=== PATIENT | female | born 1975 | race Caucasian/White ===

== ENCOUNTER → 2018-01-24 | Outpatient (CLI) | payer OTHER, BC ==
[2018-01-24] MEDS: GADOBUTROL 10 MMOL/10 ML (GADAVIST) VIAL IV ONE (08:51)
--- NOTE | 2018-01-24 09:33 | Diagnostic Imaging Report ---
PROCEDURE: MR imaging of the brain with and without contrast. TECHNIQUE: Multiplanar, multisequence MR imaging of the brain was performed with and without contrast. INDICATION: Memory loss. No prior MRI studies available for comparison. The ventricles and sulci are appropriate for the patient's age. There is no diffusion restriction. There is normal expected flow-voids within the carotid siphons are seen. No acute intra-axial or extra-axial hemorrhage is detected. The corpus callosum is unremarkable. Sella and parasellar structures are unremarkable. No abnormal enhancement following contrast administration is identified. IMPRESSION: Unremarkable pre-and postcontrast MRI of the brain. Dictated by: Dictated on workstation # [id number]
== END ==
LOC: RAD 07:54
PROVIDERS: ATTEND Nurse Practitioner Family
DX: R41.3 Other amnesia (principal)
CPT/HCPCS: 70553

== ENCOUNTER → 2018-02-11 | Outpatient (CLI) | payer OTHER, BC ==
--- NOTE | 2018-02-11 19:15 | Diagnostic Imaging Report ---
INDICATION: Digital mammogram bilateral screening. This is the patient's baseline study. At this time, there are no current complaints. The current study was also evaluated with a Computer Aided Detection (CAD) system. FINDINGS: There are scattered fibroglandular densities in both breasts which could obscure a lesion. There is no primary or secondary sign of malignancy noted. IMPRESSION: 1. There is no evidence of malignancy. 2. The patient should have her annual bilateral screening mammogram on schedule in January of 2019. ACR BI-RADS Category 1: Negative. Result letter will be mailed to the patient. Note: At least 10% of breast cancer is not imaged by mammography. Dictated by: Dictated on workstation # [id number]
== END ==
LOC: RAD 08:10
PROVIDERS: ATTEND Nurse Practitioner Family
DX: Z12.31 Encounter for screening mammogram for malignant neoplasm of breast (principal)
CPT/HCPCS: 77067

== ENCOUNTER → 2020-01-14 | Outpatient (CLI) | payer OTHER ==
--- NOTE | 2020-01-14 10:59 | Diagnostic Imaging Report ---
PROCEDURE: CT urinary tract, rule out kidney stone. TECHNIQUE: Multiple contiguous axial images were obtained through the abdomen and pelvis without the use of intravenous contrast. Auto Exposure Controls were utilized during the CT exam to meet ALARA standards for radiation dose reduction. INDICATION: Hematuria, bilateral flank pain. COMPARISON: There are no prior studies available for comparison. FINDINGS: There is no evidence for nephrolithiasis or urolithiasis and the kidneys do not appear to be obstructed. There is no solid renal mass identified either. The urinary bladder is only partially filled and consequently difficult to assess. There is no obvious bladder abnormality evident. The uterus does not appear to be enlarged. There is a 3.1 cm cyst associated with the left ovary. If further evaluation of this finding is desired, then ultrasound would be recommended. There is no pelvic mass or free fluid collection noted. There are few diverticula scattered throughout the descending and sigmoid colon. There is no evidence for acute diverticulitis. The appendix was visualized and is not abnormally thickened. The liver, spleen, pancreas, adrenals, aorta, and the inferior vena cava are unremarkable for an acute abnormality. The stomach is not well distended and consequently difficult to assess. The gallbladder is surgically absent. The lung bases are clear. The bone windows show no sign of a fracture or of a destructive lesion. IMPRESSION: 1. There is no evidence for nephrolithiasis or urolithiasis and the kidneys do not appear to be obstructed. 2. There is a 3.1 cm low-density area associated with the left ovary. Most likely, this is a cyst. If further study is desired, then ultrasound would be recommended. 3. There is diverticulosis of the sigmoid and descending colon without evidence for acute diverticulitis. 4. The gallbladder is surgically absent. Dictated by: Dictated on workstation # [id number]
== END ==
LOC: RAD 10:14
PROVIDERS: ATTEND Family Medicine
DX: K57.30 Diverticulosis of large intestine without perforation or abscess without bleeding (principal); R31.9 Hematuria, unspecified; R10.9 Unspecified abdominal pain
CPT/HCPCS: 74176

== ENCOUNTER → 2020-01-18 | Outpatient (CLI) | payer BC, OTHER | LOC: CARD 10:13 | PROVIDERS: ATTEND Nurse Practitioner Family | DX: I51.7 Cardiomegaly (principal); R00.0 Tachycardia, unspecified | CPT/HCPCS: 93225; 93226; 93306 ==

== ENCOUNTER → 2020-01-26 | Outpatient (CLI) | payer BC, OTHER | LOC: CARD 13:06 | PROVIDERS: ATTEND Internal Medicine Cardiovascular Disease | DX: R00.2 Palpitations (principal); R00.0 Tachycardia, unspecified | CPT/HCPCS: 93351 ==

== ENCOUNTER → 2021-10-16 | Outpatient (CLI) | payer OTHER ==
--- NOTE | 2021-10-16 16:33 | Diagnostic Imaging Report ---
TECHNIQUE: Multiplanar multisequence MRI of the thoracic spine was performed without contrast. REASON FOR EXAM: Mid back pain. Rib pain. COMPARISON: None. FINDINGS: No acute fracture or dislocation is seen in the thoracic spine. Vertebral body heights are well-maintained. Alignment is anatomic. No suspicious focal osseous lesions are visualized in the thoracic spine. Hemangiomas are seen in the L1 vertebral body. The costovertebral junctions throughout the thoracic spine are unremarkable. The intrinsic signal within the thoracic spinal cord is normal. No evidence of cord expansion. No epidural collections are identified. Mild degenerative changes are seen in the thoracic spine with posterior disc bulges and facet hypertrophy. These are greatest at the T8-T9 level with mild spinal canal narrowing and no significant foraminal narrowing. No high-grade spinal canal stenosis is seen in the thoracic spine. The included lungs are clear. The paraspinal soft tissues are unremarkable. IMPRESSION: 1. No acute fracture or dislocation in the thoracic spine. 2. Unremarkable appearance of the costovertebral junctions throughout the thoracic spine. No evidence of malalignment or focal osseous lesion. No bone marrow edema is seen. 3. Mild degenerative changes in the thoracic spine, greatest at T8-T9. No high-grade spinal canal or foraminal stenosis. Dictated by: Dictated on workstation # [id number]
== END ==
LOC: RAD 14:45
PROVIDERS: ATTEND Pediatrics
DX: M47.814 Spondylosis without myelopathy or radiculopathy, thoracic region (principal)
CPT/HCPCS: 72146

== ENCOUNTER 2022-08-18 15:12 | Day surgery (SDC) | payer OTHER ==
[2022-08-18] VITALS (10 sets, daily range): BP systolic 111–146; BP diastolic 53–90
[~2022-08-18] VITALS: Ht 162 cm; Wt 104.0 kg
--- NOTE | 2022-08-18 15:37 | ED Abdominal Pain ---
General Chief Complaint: Abdominal/GI Problems Stated Complaint: ABD PAIN Source of Information: Patient Exam Limitations: No Limitations History of Present Illness Date Seen by Provider: Aug 18, 2022 Time Seen by Provider: 15:30 Initial Comments Patient comes to the emergency department today for abdominal pain that started in the middle of the night. Initially thought that she had food poisoning but the symptoms have continued to persist throughout the day. Denies fever that she is aware of. Has not ate anything today. Was seen in the clinic prior to coming here. States that they gave her a pill and she immediately vomited it back up. No emesis since then. Does still have her appendix. Denies concern for as she is not currently sexually active. Timing/Duration: 1 Day Severity/Quality: Moderate Location: RLQ Radiation: No Radiation Activities at Onset: None Modifying Factors: Improves With Lying down Associated Symptoms: No Fever/Chills; Nausea/Vomiting Allergies and Home Medications Allergies Coded Allergies: No Known Drug Allergies (Unverified , 01/24/18) Patient Home Medication List Home Medication List Reviewed: Yes Hydrocodone Bit/Acetaminophen (HYDROcodone/APAP 5 MG/325 MG TAB) 1 Tab Tab, 1 TAB PO Q8H PRN for PAIN-MODERATE (5-7) Prescribed by: GERARDO SIM on 08/18/221906 Review of Systems Review of Systems Constitutional: No chills, No diaphoresis, No fever EENTM: No Symptoms Reported Respiratory: Denies Cough, Denies Shortness of Air, Denies Wheezing Cardiovascular: Denies Chest Pain, Denies Palpitations Gastrointestinal: Abdominal Pain; Denies Constipated, Denies Diarrhea; Nausea, Poor Appetite, Poor Fluid Intake, Vomiting Genitourinary: Denies Burning, Denies Discharge, Denies Frequency, Denies Flank Pain Musculoskeletal: No back pain Skin: No pruritus, No rash All Other Systems Reviewed Negative Unless Noted: Yes Past Ljzsuoz-Wdqwzl-Kzdfuo Hx Patient Social History Tobacco Use?: No Family Medical History Reviewed Nursing Family Hx Physical Exam Vital Signs Vital Signs - First Documented 08/18/22 15:25 Temp 35.4 Pulse 80 Resp 18 B/P (MAP) 162/95 (117) O2 Delivery Room Air Capillary Refill : Height/Weight/BMI Height: '" Weight: lbs. oz. kg; BMI Method: General Appearance: WD/WN, no apparent distress Neck: non-tender, normal inspection Respiratory: chest non-tender, lungs clear, normal breath sounds, no respiratory distress, no accessory muscle use Cardiovascular: regular rate, rhythm Gastrointestinal: abnormal bowel sounds (decreased bowel sounds); No distended; guarding (right lower quadrant), rebound (RLQ), tenderness (RLQ) Extremities: normal range of motion, non-tender, normal inspection Back: normal inspection Skin: normal color, warm/dry Progress/Results/Core Measures Results/Orders Lab Results Laboratory Tests Test 08/18/22 15:30 08/18/22 16:49 Range/Units White Blood Count 16.6 H 4.3-11.0 10^3/uL Red Blood Count 5.04 3.80-5.11 10^6/uL Hemoglobin 14.1 11.5-16.0 g/dL Hematocrit 41 35-52 % Mean Corpuscular Volume 81 80-99 fL Mean Corpuscular Hemoglobin 28 25-34 pg Mean Corpuscular Hemoglobin Concent 35 32-36 g/dL Red Cell Distribution Width 13.0 10.0-14.5 % Platelet Count 292 130-400 10^3/uL Mean Platelet Volume 9.6 9.0-12.2 fL Immature Granulocyte % (Auto) 1 % Neutrophils (%) (Auto) 86 H 42-75 % Lymphocytes (%) (Auto) 9 L 12-44 % Monocytes (%) (Auto) 3 0-12 % Eosinophils (%) (Auto) 0 0-10 % Basophils (%) (Auto) 0 0-10 % Neutrophils # (Auto) 14.4 H 1.8-7.8 10^3/uL Lymphocytes # (Auto) 1.6 1.0-4.0 10^3/uL Monocytes # (Auto) 0.5 0.0-1.0 10^3/uL Eosinophils # (Auto) 0.0 0.0-0.3 10^3/uL Basophils # (Auto) 0.1 0.0-0.1 10^3/uL Immature Granulocyte # (Auto) 0.1 0.0-0.1 10^3/uL Neutrophils % (Manual) 85 % Lymphocytes % (Manual) 12 % Monocytes % (Manual) 3 % Blood Morphology Comment NORMAL Sodium Level 139 135-145 MMOL/L Potassium Level 3.4 L 3.6-5.0 MMOL/L Chloride Level 99 98-107 MMOL/L Carbon Dioxide Level 22 21-32 MMOL/L Anion Gap 18 H 5-14 MMOL/L Blood Urea Nitrogen 6 L 7-18 MG/DL Creatinine 0.69 0.60-1.30 MG/DL Estimat Glomerular Filtration Rate 109 BUN/Creatinine Ratio 9 Glucose Level 126 H 70-105 MG/DL Calcium Level 10.1 8.5-10.1 MG/DL Corrected Calcium 8.5-10.1 MG/DL Total Bilirubin 0.5 0.1-1.0 MG/DL Aspartate Amino Transf (AST/SGOT) 28 5-34 U/L Alanine Aminotransferase (ALT/SGPT) 45 0-55 U/L Alkaline Phosphatase 83 40-136 U/L Total Protein 8.3 H 6.4-8.2 GM/DL Albumin 4.6 H 3.2-4.5 GM/DL Lipase 7 L 8-78 U/L Serum Test, Qualitative NEGATIVE NEGATIVE Urine Color YELLOW Urine Clarity CLEAR Urine pH 7.5 5-9 Urine Specific [place] <=1.005 1.016-1.022 Urine Protein NEGATIVE NEGATIVE Urine Glucose (UA) NEGATIVE NEGATIVE Urine Ketones NEGATIVE NEGATIVE Urine Nitrite NEGATIVE NEGATIVE Urine Bilirubin NEGATIVE NEGATIVE Urine Urobilinogen 0.2 < = 1.0 MG/DL Urine Leukocyte Esterase NEGATIVE NEGATIVE Urine RBC (Auto) NEGATIVE NEGATIVE Urine RBC NONE /HPF Urine WBC NONE /HPF Urine Squamous Epithelial Cells 2-5 /HPF Urine Crystals NONE /LPF Urine Bacteria NEGATIVE /HPF Urine Casts NONE /LPF Urine Mucus NEGATIVE /LPF Urine Culture Indicated NO My Orders Orders - KURT GONSALVES APRN Comprehensive Metabolic Panel (08/18/22 15:37) Lipase (08/18/22 15:37) Ua Culture If Indicated (08/18/22 15:37) Hcg,Qualitative Serum (08/18/22 15:37) Ed Iv/Invasive Line Start (08/18/22 15:37) Cbc With Automated Diff (08/18/22 15:37) Ct Abd/Pelv W (Appendicitis) (08/18/22 15:37) Ns Iv 1000 Ml (Sodium Chloride 0.9%) (08/18/22 15:45) Ondansetron Injection (Zofran Injectio (08/18/22 15:45) Iohexol Injection (Omnipaque 350 Mg/Ml 1 (08/18/22 15:45) Received Contrast (Hold Metformin- Contr (08/18/22 15:45) Ns (Ivpb) (Sodium Chloride 0.9% Ivpb Bag (08/18/22 15:45) Manual Differential (08/18/22 15:30) Lidocaine/Epi Mpf 2% 1:200,000 (Xylocain (08/18/22 17:48) Medications Given in ED Vital Signs/I&O 08/18/22 15:25 Temp 35.4 Pulse 80 Resp 18 B/P (MAP) 162/95 (117) O2 Delivery Room Air Progress Progress Note : Progress Note Patient offered pain medication after assessment and declined at this time. Will work up for appendicitis at this time. 1647: CT scan shows appendicitis. Patient aware of CT findings. Her WBC count is elevated in addition. Upon reassessment she is denying pain at this time. Consulted with Dr. Sim in regards to patient and he will come in and evaluate patient. Patient made aware of this. Consults : Consulting Physician: GERARDO SIM DO Consults Notes 1647: Consulted with Dr. Sim in regards to patient. He will come in and see patient. Departure Communication (Admissions) Time/Spoke to Admitting Phy: 16:[address] Sim in regards to patient and appendicitis. He will come in and evaluate the patient. Impression Primary Impression: Appendicitis Qualified Codes: K35.80 - Unspecified acute appendicitis Disposition: ADMITTED INPATIENT Condition: Stable Admissions Decision to Admit Reason: Admit from ER (General) Decision to Admit/Date: Aug 19, 2022 Time/Decision to Admit Time: 16:47 Departure-Patient Inst. Decision time for Depature: 16:47 Referrals: TRICIA RUST MD (PCP/Family) Primary Care Physician Scripts Hydrocodone Bit/Acetaminophen (HYDROcodone/APAP 5 MG/325 MG TAB) 1 Tab Tab 1 TAB PO Q8H PRN for PAIN-MODERATE (5-7), #14 TAB Prov: GERARDO SIM DO 08/18/22 KURT GONSALVES APRN Aug 18, 2022 15:37
[2022-08-18] MEDS ORDERED: NS 100 ML (IVPB) BAG IV ONE (15:45)
[2022-08-18] MEDS ORDERED: ONDANSETRON 4 MG/2 ML (SDV) Z0FRAN IVP ONE (15:45)
[2022-08-18] MEDS ORDERED: IOHEXOL 350 MG/ML 100 ML (OMNIPAQUE 350) VIAL IV ONE (15:45)
[2022-08-18] MEDS ORDERED: NS IV 1000 ML 1,000 ML IV SCH (15:45)
[2022-08-18] MEDS ORDERED: HOLD METFORMIN - RECEIVED CONTRAST 20 ML VIAL IV SCH (15:45)
[2022-08-18 15:58] LABS: ALBUMIN 4.6 GM/DL (3.2-4.5); CHLORIDE 99 MMOL/L (98-107); POTASSIUM 3.4 MMOL/L (3.6-5.0); SODIUM 139 MMOL/L (135-145)
[2022-08-18 16:00] LABS: CALCIUM 10.1 MG/DL (8.5-10.1)
[2022-08-18 16:01] LABS: GLUCOSE 126 MG/DL (70-105); TOTAL PROTEIN 8.3 GM/DL (6.4-8.2)
[2022-08-18 16:02] LABS: BILIRUBIN,TOTAL 0.5 MG/DL (0.1-1.0); CARBON DIOXIDE 22 MMOL/L (21-32)
[2022-08-18 16:04] LABS: ALKALINE PHOSPHATASE 83 U/L (40-136); CREATININE SERUM 0.69 MG/DL (0.60-1.30); GFR ESTIMATED 109
[2022-08-18 16:05] LABS: BUN/CREATININE RATIO 9
[2022-08-18 16:07] LABS: ALANINE AMINOTRANSFERASE 45 U/L (0-55); BASOPHILS # (AUTO) 0.1 10^3/uL (0.0-0.1); BASOPHILS % (AUTO) 0 % (0-10); EOSINOPHILS % (AUTO) 0 % (0-10); HEMATOCRIT 41 % (35-52); HEMOGLOBIN 14.1 g/dL (11.5-16.0); LYMPHOCYTES # (AUTO) 1.6 10^3/uL (1.0-4.0); LYMPHOCYTES % (AUTO) 9 % (12-44); MEAN CORPUSCULAR HEMOGLOBIN 28 pg (25-34); MEAN CORPUSCULAR HGB CONC 35 g/dL (32-36); MEAN CORPUSCULAR VOLUME 81 fL (80-99); MEAN PLATELET VOLUME 9.6 fL (9.0-12.2); MONOCYTES # (AUTO) 0.5 10^3/uL (0.0-1.0); MONOCYTES % (AUTO) 3 % (0-12); NEUTROPHILS # (AUTO) 14.4 10^3/uL (1.8-7.8); NEUTROPHILS % (AUTO) 86 % (42-75); PLATELET COUNT 292 10^3/uL (130-400); WHITE BLOOD COUNT 16.6 10^3/uL (4.3-11.0)
[2022-08-18 16:08] LABS: LIPASE 7 U/L (8-78)
--- NOTE | 2022-08-18 16:30 | Diagnostic Imaging Report ---
PROCEDURE: CT abdomen and pelvis with contrast, rule out appendicitis. TECHNIQUE: Multiple contiguous axial images were obtained through the abdomen and pelvis after the administration of intravenous contrast. All CT scans use one or more of the following dose optimizing techniques: automated exposure control, MA and/or KvP adjustment based on patient size and exam type or iterative reconstruction. INDICATION: Right lower quadrant abdominal pain. COMPARISON: CT abdomen and pelvis without contrast 01/14/2020. FINDINGS: Lung bases are clear. Cholecystectomy. The liver, pancreas, spleen, adrenals, kidneys, collecting systems and bladder are negative. Moderate colonic diverticulosis without evidence of active diverticulitis. Reproductive structures are grossly unremarkable. No acute osseous findings. Dilated thick-walled appendix with adjacent inflammatory change. Appendix measures up to 1.3 cm in diameter. No free intraperitoneal air or fluid. No fluid collections. No evidence of bowel obstruction. IMPRESSION: 1. CT findings consistent with acute uncomplicated appendicitis. No free intraperitoneal air or fluid. No evidence of abscess formation. 2. Moderate colonic diverticulosis without evidence of active diverticulitis. Dictated by: Dictated on workstation # [id number]
[2022-08-18 16:37] LABS: LYMPHOCYTES % (MANUAL) 12 %; MONOCYTES % (MANUAL) 3 %; NEUTROPHILS % (MANUAL) 85 %; RBC MORPH NORMAL
[2022-08-18 16:56] LABS: BILIRUBIN,URINE NEGATIVE (NEGATIVE); CLARITY,URINE CLEAR; COLOR,URINE YELLOW; GLUCOSE, URINE (UA) NEGATIVE (NEGATIVE); KETONES,URINE NEGATIVE (NEGATIVE); LEUKOCYTE ESTERASE ,URINE NEGATIVE (NEGATIVE); NITRITE,URINE NEGATIVE (NEGATIVE); PH,URINE 7.5 (5-9); PROTEIN,URINE NEGATIVE (NEGATIVE)
[2022-08-18 17:04] LABS: BACTERIA,URINE NEGATIVE /HPF
[2022-08-18] MEDS ORDERED: MIDAZOLAM 2 MG/2 ML (VERSED) VIAL ONE (17:45)
[2022-08-18] MEDS ORDERED: fentaNYL INJ 100 MCG/2 ML AMP ONE (17:45)
[2022-08-18] MEDS ORDERED: LIDOCAINE/EPI 2% 1:200,00 (XYLOCAINE) 20 ML VIAL ONE (17:48)
[2022-08-18] MEDS ORDERED: ROCURONIUM 50 MG/5 ML (ZEMURON) VIAL IV ONE (17:49)
[2022-08-18] MEDS ORDERED: LIDOCAINE PF 2% 5 ML (XYLOCAINE) VIAL ONE (17:49)
[2022-08-18] MEDS ORDERED: proPOfol 200 MG/20 ML (DIPRIVAN) VIAL IV ONE (17:49)
[2022-08-18] MEDS ORDERED: ceFAZolin INJECTION 0 MG ONE (17:55)
--- NOTE | 2022-08-18 17:59 | Consultation - Surgery ---
History of Present Illness History of Present Illness Patient Consulted On(sayra/time) 08/18/22 17:53 Time Seen by Provider: 15:33 History of Present Illness Surgery asked to consult regarding RLQ pain. HPI per ED: Patient comes to the emergency department today for abdominal pain that started in the middle of the night. Initially thought that she had food poisoning but the symptoms have continued to persist throughout the day. Denies fever that she is aware of. Has not ate anything today. Was seen in the clinic prior to coming here. States that they gave her a pill and she immediately vomited it back up. No emesis since then. Does still have her appendix. Denies concern for as she is not currently sexually active. When I spoke to pt she was in the ER bed, resting comfortably. 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 Pain started at 6 am and was accompanied by loss of appetite. She described a sharp crampy pain, did not radiate. Worse over bumps and if bending down. She rated the pain as 4 out of 10, not going away. She went to [facility] walk in clinic and then got sent to the ER. Allergies and Home Medications Allergies Coded Allergies: No Known Drug Allergies (Unverified , 01/24/18) Patient Home Medication List Home Medication List Reviewed: Yes Past Ygfcbji-Yivrhp-Hpydxd Hx Patient Social History Smoking Status: Light Tobacco Smoker (3-5 cigarettes per day, only recently started smoking again 2 weeks ago. Had quit for 10 yrs) Alcohol Use?: No Have you traveled recently?: No Surgeries History of Surgeries: Yes Surgeries: Section, Gallbladder Respiratory History of Respiratory Disorde: No Cardiovascular History of Cardiac Disorders: No Neurological History of Neurological Disord: No Gastrointestinal History of Gastrointestinal Di: Yes Gastrointestinal Disorders: Gall Bladder Disease Musculoskeletal History of Musculoskeletal Dis: Yes Musculoskeletal Disorders: Fibromyalgia Endocrine History of Endocrine Disorders: Yes Endocrine Disorders: Diabetes, Non-Insulin dep HEENT History of HEENT Disorders: No Cancer History of Cancer: No Psychosocial History of Psychiatric Problem: No Integumentary History of Skin or Integumenta: No Family Medical History Significant Family History: Heart Disease (father), Diabetes (mother and father), Other Conditions/Hx (Mother has MS) Review of Systems-General Constitutional: No chills, No diaphoresis; fever EENTM: No blurred vision, No mouth swelling, No epistaxis Respiratory: No cough, No dyspnea on exertion Cardiovascular: No chest pain, No palpitations Gastrointestinal: abdominal pain (RLQ); No jaundice; loss of appetite, nausea, vomiting Genitourinary: No dysuria, No frequency, No hematuria Musculoskeletal: No back pain, No joint swelling Skin: No change in color, No change in hair/nails Psychiatric/Neurological: Denies Anxiety, Denies Depressed, Denies Seizure, Denies Tremors Physical Exam-General Problems Physical Exam Vital Signs Vital Signs - First Documented 08/18/22 15:25 Temp 35.4 Pulse 80 Resp 18 B/P (MAP) 162/95 (117) O2 Delivery Room Air Capillary Refill : Less Than 3 Seconds General Appearance: mild distress, obese Eyes: Bilateral Eye PERRL, Bilateral Eye EOMI HEENT: pharynx normal; No scleral icterus (R), No scleral icterus (L) Neck: non-tender, supple Respiratory: lungs clear, normal breath sounds, no respiratory distress, no accessory muscle use Cardiovascular: regular rate, rhythm, no murmur Gastrointestinal: soft, no organomegaly, tenderness (right lower quadrant), hernia (small umbilical) Back: no CVA tenderness, no vertebral tenderness Extremities: no pedal edema, no calf tenderness, normal capillary refill Neurologic/Psychiatric: 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, alert, normal mood/affect, oriented x 3 Skin: normal color, warm/dry Lymphatic: no adenopathy (neck, axilla or groin) Data Review Labs Laboratory Tests 08/18/22 15:30: White Blood Count 16.6H, Red Blood Count 5.04, Hemoglobin 14.1, Hematocrit 41, Mean Corpuscular Volume 81, Mean Corpuscular Hemoglobin 28, Mean Corpuscular Hemoglobin Concent 35, Red Cell Distribution Width 13.0, Platelet Count 292, Mean Platelet Volume 9.6, Immature Granulocyte % (Auto) 1, Neutrophils (%) (Auto) 86H, Lymphocytes (%) (Auto) 9L, Monocytes (%) (Auto) 3, Eosinophils (%) (Auto) 0, Basophils (%) (Auto) 0, Neutrophils # (Auto) 14.4H, Lymphocytes # (Auto) 1.6, Monocytes # (Auto) 0.5, Eosinophils # (Auto) 0.0, Basophils # (Auto) 0.1, Immature Granulocyte # (Auto) 0.1, Neutrophils % (Manual) 85, Lymphocytes % (Manual) 12, Monocytes % (Manual) 3, Blood Morphology Comment NORMAL, Sodium Level 139, Potassium Level 3.4L, Chloride Level 99, Carbon Dioxide Level 22, Anion Gap 18H, Blood Urea Nitrogen 6L, Creatinine 0.69, Estimat Glomerular Filtration Rate 109, BUN/Creatinine Ratio 9, Glucose Level 126H, Calcium Level 10.1, Corrected Calcium , Total Bilirubin 0.5, Aspartate Amino Transf (AST/SGOT) 28, Alanine Aminotransferase (ALT/SGPT) 45, Alkaline Phosphatase 83, Total Protein 8.3H, Albumin 4.6H, Lipase 7L, Serum Test, Qualitative NEG ATIVE 08/18/22 16:49: Urine Color YELLOW, Urine Clarity CLEAR, Urine pH 7.5, Urine Specific [place] <=1.005, Urine Protein NEGATIVE, Urine Glucose (UA) NEGATIVE, Urine Ketones NEGATIVE, Urine Nitrite NEGATIVE, Urine Bilirubin NEGATIVE, Urine Urobilinogen 0.2, Urine Leukocyte Esterase NEGATIVE, Urine RBC (Auto) NEGATIVE, Urine RBC NONE, Urine WBC NONE, Urine Squamous Epithelial Cells 2-5, Urine Crystals NONE, Urine Bacteria NEGATIVE, Urine Casts NONE, Urine Mucus NEGATIVE, Urine Culture Indicated NO Radiology Date of Exam:08/18/22 CT ABD/PELV W (APPENDICITIS) PROCEDURE: CT abdomen and pelvis with contrast, rule out appendicitis. TECHNIQUE: Multiple contiguous axial images were obtained through the abdomen and pelvis after the administration of intravenous contrast. All CT scans use one or more of the following dose optimizing techniques: automated exposure control, MA and/or KvP adjustment based on patient size and exam type or iterative reconstruction. INDICATION: Right lower quadrant abdominal pain. COMPARISON: CT abdomen and pelvis without contrast 01/14/2020. FINDINGS: Lung bases are clear. Cholecystectomy. The liver, pancreas, spleen, adrenals, kidneys, collecting systems and bladder are negative. Moderate colonic diverticulosis without evidence of active diverticulitis. Reproductive structures are grossly unremarkable. No acute osseous findings. Dilated thick-walled appendix with adjacent inflammatory change. Appendix measures up to 1.3 cm in diameter. No free intraperitoneal air or fluid. No fluid collections. No evidence of bowel obstruction. IMPRESSION: 1. CT findings consistent with acute uncomplicated appendicitis. No free intraperitoneal air or fluid. No evidence of abscess formation. 2. Moderate colonic diverticulosis without evidence of active diverticulitis. Dictated by: Dictated on workstation # [id number] Dict: 08/18/22 1611 Trans: 08/18/22 171 [facility] [id number] Interpreted by: SAMMY KEEN MD Electronically signed by: SAMMY KEEN MD 08/18/22 1710 Assessment/Plan Assessment/Plan Assessment/Plan Acute Appendicitis Hypokalemia - very mild I spoke with ED provider and reviewed the CT myself; the appendix is dilated and does appear to have inflammation surrounding it. Pt has RLQ pain; this is almost assuredly acute appendicitis. I talked to the pt about surgery; risks and complications not limited to pain, bleeding, infection, scar, damage to bowel and need for further procedure. All questions answered to her satisfaction. Will get consent for Laparoscopic Appendectomy, possible open. 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 As long as it isn't worse and things go smoothly she most likely will go home tonight. GERARDO HARLEY DO Aug 18, 2022 17:59
[2022-08-18] MEDS ORDERED: LACTATED RINGERS 1,000 ML IV PRN (18:00)
[2022-08-18] MEDS ORDERED: CLINDAMYCIN 600 MG/50 ML IVPB 50 ML IV ONE (18:26)
[2022-08-18] MEDS ORDERED: KETOROLAC 30 MG/ML VIAL ONE (18:56)
--- NOTE | 2022-08-18 19:05 | Progress Note-Post Operative ---
Post-Operative Progess Note Surgeon (s)/Psychometric Examiner (s) Surgeon GERARDO HARLEY DO Psychometric Examiner: none Pre-Operative Diagnosis Acute appy Post-Operative Diagnosis same Procedure & Operative Findings Date of Procedure 08/18/22 Procedure Performed/Findings PROCEDURE: Laparoscopic appendectomy. COMPLICATIONS: None. INDICATIONS: The patient is a 47 year old female who has been having right lower quadrant abdominal pain. Patient's exam consistent with appendicitis. I discussed risk and benefits of laparoscopic appendectomy and all indicated procedures with the possibility being a normal appendix. The patient understands the risks and benefits and wishes to proceed. Consent was signed on the chart. DESCRIPTION OF PROCEDURE: The patient was taken to the operating suite, prepped and draped in a sterile fashion. Timeout was performed. Local anesthetic was infiltrated just above the umbilicus and a #11-blade scalpel was used to make a skin incision. Cautery was used to dissect down to the fascia and scored. Kochers were used to grasp and elevate it and the abdomen was then entered. A 0 Vicryl was placed in a [id number] fashion for closure at the end of the case. The balloon trocar was inserted into the abdomen and pneumo- peritoneum was achieved. Under direct visualization of the laparoscope, a 5 mm trocar was placed in the suprapubicregion and a 5 mm trocar was placed in the left lower quadrant. Appendix was located; there was some fibrinous material around it and it was dilated, but no pefortation seen. The mesoappendix was then divided down to the base of the appendix until it was free and only attached to the cecum. Identified TI going into cecum and well away from where we had dissected. Once at the base anEndo-FAMILIA 2.5 stapler was then fired across the base of the appendix. It was then placed in an Endobag and removed through the 12 mm trocar site. The abdomen was then irrigated and suctioned. No other pathology noted. The abdomen was then desufflated and the trocars were removed. The 0 Vicryl placed at the beginning of the case was then tied closing the 12 mm fascial defect. The skin was then closed using 4-0 Monocryl in a subcuticular fashion. The abdomen was then washed and dried and Skin Affix was placed over the incisions. The patient tolerated the procedure well without any complications and was taken to the recovery room in stable condition. Anesthesia Type GET Estimated Blood Loss Estimated blood loss (mL): scant Specimens/Packing Specimens Removed GERARDO Miller DO Aug 18, 2022 19:05
[2022-08-18] MEDS ORDERED: ACHD5005 PO (19:06)
--- NOTE | 2022-08-18 19:07 | Discharge Inst-Surgical ---
Discharge Inst-Surgical Depart Medication/Instructions New, Converted or Re-Newed RX: Transmitted to Pharmacy Patient Instructions Follow up Appt: Make appointment for 1 week. [phone] Instructions: No lifting greater than 20 pounds. No strenuous activity. May shower in 24 hours, no tub bath or soaking. Use incentive spirometer at home as directed. No Smoking Skin/Wound Care: May remove bandages in am. You need to leave the Dermabond on incision it will fall off on it's own. Symptoms to Report: Appetite Changes, Extremity Discoloration, Numbness/Tingling, Swelling Increased, Bleeding Excessive, Eyesight Changes, Pain Increased, Urine Color Change, Constipation(Persistent), Fever over 101 degree F, Pain/Pressure in chest, Urinating Difficulty, Cough Up/Vomit Blood, Heart Beat Irreg/Pounding, Pain/Pressure in jaw, Cramps in feet or legs, Lightheadedness, Pain/Pressure in shoulder, Diarrhea(Persistent), Memory Changes Suddenly, Questions/Concerns, Weight gain consecutive days, Dizziness/Fainting, Nausea/Vomiting, Shortness of Breath, Weight gain over 2 pounds If questions or concerns contact your physician Or seek help at emergency department. Activity Activity as Tolerated: Yes Activity Instructions: Avoid Stress to Incision Driving Instructions: No Driving/Refer to Dr. Mendoza Discharge Diet: No Restrictions Diet After 24 Hours: Clear Liquid if Nauseous If Any Problems/Questions/Issu: Contact Your Physician, Go to Emergency Room Skin/Wound Care Infection Signs and Symptoms: Increased Redness, Foul Odor of Wound, Increased Drainage, Skin Itchy or Has a Rash, Increased Swelling, Temperature Above 101 F Wound Care Comment: heating pad to shoulder or neck tonight for pain Bathing Instructions: Shower Stitches/[place]/Dermabond Dis: Dermabond Ice Pack: Ice On and Off Site GERARDO HARLEY DO Aug 18, 2022 19:07
[2022-08-18] MEDS ORDERED: NEOSTIGMINE (BLOXIVERZ ) 1 MG/1ML 10 ML VIAL ONE (19:10)
[2022-08-18] MEDS ORDERED: GLYCOPYRROLATE 0.2 MG/ML (ROBINUL) 2 ML VIAL ONE (19:10)
[2022-08-18] MEDS ORDERED: ONDANSETRON 4 MG/2 ML (SDV) Z0FRAN ONE (19:21)
[2022-08-18] MEDS ORDERED: SEVOFLURANE (ULTANE) 15 ML INHAL SOLN ONE (19:22)
--- NOTE | 2022-08-18 19:29 | Anesthesia-General Post-Op ---
General Patient Condition Mental Status/LOC: Same as Preop Cardiovascular: Satisfactory Nausea/Vomiting: Absent Respiratory: Satisfactory Pain: Controlled Complications: Absent Post Op Complications Complications None Follow Up Care/Instructions Patient Instructions None needed. Anesthesia/Patient Condition Patient Condition Patient is doing well, no complaints, stable vital signs, no apparent adverse anesthesia problems. No complications reported per nursing. IAN FRANK CRNA Aug 18, 2022 19:29
[2022-08-18] MEDS ORDERED: fentaNYL INJ 100 MCG/2 ML AMP IVP ONE (19:30)
[2022-08-18] MEDS ORDERED: morphine INJ 10 MG/ML 1ML (SYR OR VIAL) IVP ONE (19:30)
[2022-08-18] MEDS ORDERED: ONDANSETRON 4 MG/2 ML (SDV) Z0FRAN IVP PRN (19:30)
[2022-08-18] MEDS ORDERED: LACTATED RINGERS 1,000 ML IV ONE (19:54)
[2022-08-23] MEDS ORDERED: CLINDAMYCIN 600 MG/50 ML IVPB 50 ML IV ONE (07:45)
== END 2022-08-18 22:10 | disposition home or self-care (01) ==
LOC: EDUNIT# 15:12 → ER 15:14 → SDC 17:51
PROVIDERS: ATTEND Surgery
DX: K35.80 Unspecified acute appendicitis (principal); E66.9 Obesity, unspecified; E66.01 Morbid (severe) obesity due to excess calories; G47.33 Obstructive sleep apnea (adult) (pediatric)
CPT/HCPCS: 36415; 74177; 80053; 81000; 83690; 84703; 85007; 85027

== ENCOUNTER 2022-10-05 13:19 | Emergency (ER) | payer OTHER ==
[~2022-10-05] VITALS: Ht 162.6 cm; Wt 107.8 kg
[~2022-10-05 13:19] MED LIST: ACHD5005 PO
--- NOTE | 2022-10-05 14:03 | ED Cardiac General ---
History of Present Illness General Chief Complaint: Cardiac/General Problems Stated Complaint: HIGH BLOOD PRESSURE Nursing Triage Note: PT AMB TO ED BY POV WITH C/O HTN AND TACHICARDIA. PT REPORTS SHE HAS INSOMNIA AND HAS ONLY BEEN GETTING 3-4 HRS OF SLEEP X 2 WKS. PT HAS SEEN PCP AND TRIED MULTIPLE MEDS TO HELP HER SLEEP WITH NO RELIEF. PT HAS BEEN RECORDING HER BP AND HR AND WENT TO [facility] TO BE EVALUATED AND WAS ADVISED TO COME TO ED. PT IS TEARFUL AND VERY FRUSTRATED. History of Present Illness Date Seen by Provider: Oct 05, 2022 Time Seen by Provider: 14:02 Initial Comments Patient presents to the emergency department for hypertension and tachycardia. Reports that she has insomnia in addition and has only been getting a few hours of sleep. Her PCP has been trying different medications and they do not seem to help. Went to [facility] to be seen and they sent her here for further evaluation and treatment. Denies chest pain. Timing/Duration: getting worse Allergies and Home Medications Allergies Coded Allergies: No Known Drug Allergies (Unverified , 01/24/18) Patient Home Medication List Home Medication List Reviewed: Yes Hydrocodone Bit/Acetaminophen (HYDROcodone/APAP 5 MG/325 MG TAB) 1 Tab Tab, 1 TAB PO Q8H PRN for PAIN-MODERATE (5-7) Prescribed by: GERARDO HARLEY on 08/18/221906 Review of Systems Review of Systems Constitutional: No chills, No dizziness, No fever Respiratory: Denies Cough, Denies Shortness of Air Cardiovascular: Denies Chest Pain, Denies Lightheadedness; Palpitations Gastrointestinal: Denies Abdominal Pain, Denies Diarrhea, Denies Nausea, Denies Vomiting Genitourinary: Denies Burning, Denies Frequency Musculoskeletal: No back pain Skin: no symptoms reported All Other Systems Reviewed Negative Unless Noted: Yes Past Ydebbtj-Rlxhne-Udddgm Hx Patient Social History Tobacco Use?: No Use of E-Cig and/or Vaping dev: No Substance use?: No Alcohol Use?: No Pt feels they are or have been: No Immunizations Up To Date Influenza Vaccine Up-to-Date: No; Not Current First/Initial COVID19 Vaccinat: 2020 Second COVID19 Vaccination Jaspreet: 2020 Past Medical History Surgery/Hospitalization HX: PMH;PCOS, INSULIN RESISTANT, ANXIETY, DEPRESSION. MTHFTH MUTATION. SURGERY: GALLBLADDER, WISDOM TEETH, , DNC. Surgeries: Yes Section, Gallbladder Respiratory: No Currently Using CPAP: No Currently Using BIPAP: No Cardiac: No Neurological: No Gastrointestinal: Yes Gall Bladder Disease Musculoskeletal: Yes Fibromyalgia Endocrine: Yes Diabetes, Non-Insulin dep HEENT: No Cancer: No Psychosocial: No Integumentary: No Family Medical History Reviewed Nursing Family Hx Heart Disease, Diabetes, Other Conditions/Hx Physical Exam Vital Signs Vital Signs - First Documented 10/05/22 13:38 Temp 36.9 Pulse 122 Resp 18 B/P (MAP) 143/104 (117) Pulse Ox 97 O2 Delivery Room Air Capillary Refill : Less Than 3 Seconds Height, Weight, BMI Height: '" Weight: lbs. oz. kg; 40.00 BMI Method: General Appearance: No Apparent Distress, WD/WN Neck: Full Range of Motion, Normal Inspection, Non Tender, Supple Respiratory: Chest Non Tender, Lungs Clear, Normal Breath Sounds, No Accessory Muscle Use, No Respiratory Distress Cardiovascular: Regular Rate, Rhythm, No Edema Extremity: Normal Capillary Refill, Normal Inspection, Normal Range of Motion Neurologic/Psychiatric: Alert, Oriented x3 Skin: Normal Color, Warm/Dry Progress/Results/Core Measures Results/Orders Lab Results Laboratory Tests Test 10/05/22 00:00 10/05/22 14:30 10/05/22 15:29 Range/Units Sodium Level 138 135-145 MMOL/L Potassium Level 3.9 3.6-5.0 MMOL/L Chloride Level 101 98-107 MMOL/L Carbon Dioxide Level 21 21-32 MMOL/L Anion Gap 16 H 5-14 MMOL/L Blood Urea Nitrogen 6 L 7-18 MG/DL Creatinine 0.70 0.60-1.30 MG/DL Estimat Glomerular Filtration Rate 109 BUN/Creatinine Ratio 9 Glucose Level 93 70-105 MG/DL Calcium Level 9.8 8.5-10.1 MG/DL Corrected Calcium 9.4 8.5-10.1 MG/DL Magnesium Level 2.1 1.6-2.4 MG/DL Total Bilirubin 0.4 0.1-1.0 MG/DL Aspartate Amino Transf (AST/SGOT) 34 5-34 U/L Alanine Aminotransferase (ALT/SGPT) 35 0-55 U/L Alkaline Phosphatase 89 40-136 U/L Myoglobin 20.3 10.0-92.0 NG/ML Troponin I < 0.028 <0.028 NG/ML Total Protein 8.3 H 6.4-8.2 GM/DL Albumin 4.5 3.2-4.5 GM/DL Lipase 77 8-78 U/L White Blood Count 9.1 4.3-11.0 10^3/uL Red Blood Count 5.19 H 3.80-5.11 10^6/uL Hemoglobin 14.5 11.5-16.0 g/dL Hematocrit 45 35-52 % Mean Corpuscular Volume 88 80-99 fL Mean Corpuscular Hemoglobin 28 25-34 pg Mean Corpuscular Hemoglobin Concent 32 32-36 g/dL Red Cell Distribution Width 13.1 10.0-14.5 % Platelet Count 233 130-400 10^3/uL Mean Platelet Volume 9.8 9.0-12.2 fL Immature Granulocyte % (Auto) 1 % Neutrophils (%) (Auto) 71 42-75 % Lymphocytes (%) (Auto) 20 12-44 % Monocytes (%) (Auto) 6 0-12 % Eosinophils (%) (Auto) 1 0-10 % Basophils (%) (Auto) 1 0-10 % Neutrophils # (Auto) 6.5 1.8-7.8 10^3/uL Lymphocytes # (Auto) 1.9 1.0-4.0 10^3/uL Monocytes # (Auto) 0.5 0.0-1.0 10^3/uL Eosinophils # (Auto) 0.1 0.0-0.3 10^3/uL Basophils # (Auto) 0.1 0.0-0.1 10^3/uL Immature Granulocyte # (Auto) 0.1 0.0-0.1 10^3/uL My Orders Orders - KURT GONSALVES E DIRECTOR [employer] Cbc With Automated Diff (10/05/22 14:07) Magnesium (10/05/22 14:07) Chest 1 View, Ap/Pa Only (10/05/22 14:07) Ekg Tracing (10/05/22 14:07) Comprehensive Metabolic Panel (10/05/22 14:07) Myoglobin Serum (10/05/22 14:07) Protime With Inr (10/05/22 14:07) Partial Thromboplastin Time (10/05/22 14:07) O2 (10/05/22 14:07) Monitor-Rhythm Ecg Trace Only (10/05/22 14:07) Ed Iv/Invasive Line Start (10/05/22 14:07) Lipase (10/05/22 14:07) Bnp Adriano (10/05/22 14:07) Fibrin Degradation Products (10/05/22 14:07) Aspirin Chewable Tablet (Baby Aspirin Ch (10/05/22 14:15) Ns Iv 1000 Ml (Sodium Chloride 0.9%) (10/05/22 14:15) Troponin I Adriano (10/05/22 14:30) Ct Angio Chest W (10/05/22 16:29) Iohexol Injection (Omnipaque 350 Mg/Ml 1 (10/05/22 17:00) Received Contrast (Hold Metformin- Contr (10/05/22 17:00) Ns (Ivpb) (Sodium Chloride 0.9% Ivpb Bag (10/05/22 17:00) Medications Given in ED Current Medications Medications Dose Ordered Sig/Arthur Route Start Time Stop Time Status Last Admin Dose Admin Aspirin 324 mg ONCE ONCE PO 10/05/22 14:15 10/05/22 14:16 DC 10/05/22 14:13 324 MG Iohexol 100 ml ONCE ONCE IV 10/05/22 17:00 10/05/22 17:01 DC 10/05/22 16:47 84 ML Sodium Chloride 100 ml ONCE ONCE IV 10/05/22 17:00 10/05/22 17:01 DC 10/05/22 16:47 80 ML Vital Signs/I&O 10/05/22 10/05/22 13:38 17:34 Temp 36.9 Pulse 122 110 Resp 18 16 B/P (MAP) 143/104 (117) 136/88 Pulse Ox 97 88 O2 Delivery Room Air Blood Pressure Mean: 117 Progress Progress Note : Progress Note Patient reports that she is feeling a lot better at this time. Reviewed labs with patient and she verbalized understanding. Reasons to return to the ER were discussed with patient in addition. Initial ECG Impression Date: Oct 05, 2022 Initial ECG Impression Time: 14:38 Initial ECG Rate: 113 Initial ECG Rhythm: Normal Sinus Initial ECG Intervals: Normal Initial ECG Impression: Normal Departure Impression Primary Impression: Palpitations Disposition: 01 HOME, SELF-CARE Condition: Stable Departure-Patient Inst. Decision time for Depature: 16:59 Referrals: TAL MOULTON DO (PCP/Family) Primary Care Physician Patient Instructions: Palpitations (DC) Add. Discharge Instructions: 1. Home and rest. 2. Push fluids. 3. Alternate Tylenol/Ibuprofen as needed for pain. 4. Follow up with PCP as needed. 5. Continue medications as directed 6. Return here if worse or concerns. All discharge instructions reviewed with patient and/or family. Voiced understanding. Work/School Note: Work Release Form Date Seen in the Emergency Department: Oct 05, 2022 Return to Work: Oct 06, 2022 Restrictions: No Restrictions KURT GONSALVES APRN Oct 05, 2022 14:03
[2022-10-05] MEDS ORDERED: ASPIRIN 81 MG CHEW (CHILDREN'S ASA) PO ONE (14:15)
[2022-10-05] MEDS ORDERED: NS IV 1000 ML 1,000 ML IV SCH (14:15)
[2022-10-05 14:55] LABS: ALBUMIN 4.5 GM/DL (3.2-4.5); CHLORIDE 101 MMOL/L (98-107); POTASSIUM 3.9 MMOL/L (3.6-5.0); SODIUM 138 MMOL/L (135-145)
[2022-10-05 14:56] LABS: CALCIUM 9.8 MG/DL (8.5-10.1)
[2022-10-05 14:57] LABS: GLUCOSE 93 MG/DL (70-105); TOTAL PROTEIN 8.3 GM/DL (6.4-8.2)
[2022-10-05 14:58] LABS: CARBON DIOXIDE 21 MMOL/L (21-32)
[2022-10-05 14:59] LABS: BILIRUBIN,TOTAL 0.4 MG/DL (0.1-1.0)
[2022-10-05 15:00] LABS: ALKALINE PHOSPHATASE 89 U/L (40-136)
[2022-10-05 15:01] LABS: GFR ESTIMATED 109
--- NOTE | 2022-10-05 15:01 | Diagnostic Imaging Report ---
HISTORY: Chest pain. TECHNIQUE: Frontal view of the chest. COMPARISON: None. FINDINGS: There is elevation of the right hemidiaphragm. Lung volumes are otherwise normal. No consolidation is seen. There is no pleural effusion or pneumothorax. The cardiac silhouette is normal in size. IMPRESSION: 1. No acute pulmonary abnormality is seen. Dictated by: Dictated on workstation # [id number]
[2022-10-05 15:02] LABS: BUN/CREATININE RATIO 9
[2022-10-05 15:04] LABS: ALANINE AMINOTRANSFERASE 35 U/L (0-55); MAGNESIUM 2.1 MG/DL (1.6-2.4)
[2022-10-05 15:05] LABS: LIPASE 77 U/L (8-78)
[2022-10-05 15:41] LABS: BASOPHILS # (AUTO) 0.1 10^3/uL (0.0-0.1); BASOPHILS % (AUTO) 1 % (0-10); EOSINOPHILS # (AUTO) 0.1 10^3/uL (0.0-0.3); EOSINOPHILS % (AUTO) 1 % (0-10); HEMATOCRIT 45 % (35-52); HEMOGLOBIN 14.5 g/dL (11.5-16.0); LYMPHOCYTES # (AUTO) 1.9 10^3/uL (1.0-4.0); LYMPHOCYTES % (AUTO) 20 % (12-44); MEAN CORPUSCULAR HEMOGLOBIN 28 pg (25-34); MEAN CORPUSCULAR HGB CONC 32 g/dL (32-36); MEAN CORPUSCULAR VOLUME 88 fL (80-99); MEAN PLATELET VOLUME 9.8 fL (9.0-12.2); MONOCYTES # (AUTO) 0.5 10^3/uL (0.0-1.0); MONOCYTES % (AUTO) 6 % (0-12); NEUTROPHILS # (AUTO) 6.5 10^3/uL (1.8-7.8); NEUTROPHILS % (AUTO) 71 % (42-75); PLATELET COUNT 233 10^3/uL (130-400); WHITE BLOOD COUNT 9.1 10^3/uL (4.3-11.0)
--- NOTE | 2022-10-05 16:54 | Diagnostic Imaging Report ---
PROCEDURE: CT angiography Chest TECHNIQUE: After intravenous administration of contrast, thin section axial CT angiography of the chest was performed. 3D MIP reconstructions were made. All CT scans use one or more of the following dose optimizing techniques: automated exposure control, MA and/or KvP adjustment based on a patient size and exam type, or iterative reconstruction. INDICATION: Hypertension and tachycardia COMPARISON: CT abdomen pelvis of 08/18/2022 FINDINGS: Vasculature: No pulmonary emboli. No CT evidence of pulmonary hypertension or right ventricular strain. Thoracic aorta is normal in caliber. No aortic dissection or pseudoaneurysm. Heart and mediastinum: Visualized thyroid is normal. No supraclavicular, axillary, or intra-thoracic lymphadenopathy. The heart is normal in size without pericardial effusion. Pleura: No pleural effusion or pneumothorax. Lungs and airway: No endoluminal lesion in the trachea or central bronchi. No pneumonia or edema. No suspicious pulmonary nodules. Upper abdomen: Hepatomegaly diffuse hepatic steatosis is unchanged. Cholecystectomy. Musculoskeletal: No concerning osseous lesion. IMPRESSION: 1. No acute cardiopulmonary process. Specifically, no pulmonary emboli or acute aortic syndrome. 2. Unchanged hepatomegaly with diffuse steatosis. Dictated by: Dictated on workstation # [id number]
[2022-10-05] MEDS ORDERED: HOLD METFORMIN - RECEIVED CONTRAST 20 ML VIAL IV SCH (17:00)
[2022-10-05] MEDS ORDERED: IOHEXOL 350 MG/ML 100 ML (OMNIPAQUE 350) VIAL IV ONE (17:00)
[2022-10-05] MEDS ORDERED: NS 100 ML (IVPB) BAG IV ONE (17:00)
[2022-10-05 17:34] VITALS: BP 136/88
== END 2022-10-05 17:34 | disposition home or self-care (01) ==
LOC: EDUNIT# 13:19 → ER 13:21
DX: R00.2 Palpitations (principal)
CPT/HCPCS: 71045; 71275; 80053; 83690; 83735; 83874; 84484; 85025; 93005; 93041